=== PATIENT | female | born 1990 | race Caucasian/White ===

== ENCOUNTER 2022-01-16 09:26 | Emergency (ER) | payer OTHER ==
[~2022-01-16] VITALS: Ht 162.6 cm; Wt 50.9 kg
[2022-01-16 09:30] VITALS: BP 121/94
[2022-01-16] MEDS ORDERED: AMOX500C2 PO (11:39)
== END 2022-01-16 11:50 | disposition home or self-care (01) ==
LOC: ER 09:26
DX: O99.511 Diseases of the respiratory system complicating pregnancy, first trimester (principal); J02.9 Acute pharyngitis, unspecified; R50.9 Fever, unspecified; R59.0 Localized enlarged lymph nodes; Z90.49 Acquired absence of other specified parts of digestive tract; Z99.2 Dependence on renal dialysis; Z90.89 Acquired absence of other organs; Z3A.08 8 weeks gestation of pregnancy
CPT/HCPCS: 87081; 87880; 99283